=== PATIENT | male | born 1975 | race Native Hawaiian/Other Pacific Islander ===

== ENCOUNTER → 2021-05-03 | Outpatient (CLI) | payer OTHER ==
--- NOTE | 2021-05-04 13:07 | US ---
EXAMINATION TYPE: US groin LT DATE OF EXAM: 05/03/2021 COMPARISON: NONE CLINICAL HISTORY: R10.2 PELVIC AND PERINEAL PAIN. Lt groin pain for 1 year, no bulging, no known inju ry Normal appearing soft tissue scan of the left groin IMPRESSION: 1. No suspicious hernia left inguinal region by ultrasound
== END | disposition home or self-care (01) ==
LOC: RADUSWWP 16:42
PROVIDERS: ATTEND Family Medicine
DX: R10.32 Left lower quadrant pain (principal)